=== PATIENT | female | born 1965 | race Caucasian/White ===

== ENCOUNTER 2016-08-09 15:41 | Outpatient (CLI) | payer OTHER ==
[~2016-08-09 15:41] MED LIST: BIOTIN1000 MCG PO; CALCIUM/VITAMI600 MG PO; FISH OIL1000 M1 PO; GLUCOSAMINE1500 CO1 PO; IBUPROFEN400 MG PO
--- NOTE | 2016-08-16 11:33 | DIAGNOSTIC IMAGING REPORT ---
PROCEDURE: MG BILATERAL SCREENING W/CAD INDICATION: SCREENING TECHNIQUE: Bilateral CC and MLO digital views. COMPARISON: Mammograms 07/28/2015, 07/22/2014 and left mammogram 07/08/2013. FINDINGS: Computer-aided detection applied. Moderately dense. No change. IMPRESSION: 1. Negative mammogram RESULT CODE: 1- Negative. A. A negative report should not delay biopsy if a dominant or clinically suspicious mass is present. 10-15% of cancers are not identified by x-ray. B. A negative report may reinforce clinical impression. C. Adenosis and dense breasts may obscure an underlying neoplasm. D. False positive reports average 6-10%. E.. A yearly screening mammogram is recommended. A reminder letter will be scheduled.
== END 2016-08-09 23:00 | disposition home or self-care (01) ==
LOC: MAM SRH 15:41
DX: Z12.31 Encounter for screening mammogram for malignant neoplasm of breast (principal)